=== PATIENT | male | born 1985 | race African-American/Black ===

== ENCOUNTER 2017-06-14 22:39 | Emergency (ER) | payer SELFPAY ==
[2017-06-14] MEDS ORDERED: AMOXicillin 250 MG CAP ONE (22:55)
[2017-06-14] MEDS ORDERED: Ketorolac Tromethamine 60 MG/2 ML VIAL ONE (22:55)
== END 2017-06-14 23:19 | disposition home or self-care (01) ==
LOC: BURERS 22:39
DX: K03.81 Cracked tooth (principal); F17.210 Nicotine dependence, cigarettes, uncomplicated
CPT/HCPCS: 96372; J1885